=== PATIENT | female | born 1995 | race Caucasian/White ===

== ENCOUNTER 2023-11-17 09:34 | Emergency (ER) | payer OTHER, SELFPAY ==
[2023-11-17 09:38] VITALS: BP 131/69; PULSE 70; RESP 16; TEMP 36.2; O2SAT 98; BMI 27.3
--- NOTE | 2023-11-17 10:10 | ED_ITS ---
HPI - General Adult General Chief complaint: Nausea/Vomiting Stated complaint: Throwing up blood Time Seen by Provider: 11/17/23 09:40 History of Present Illness HPI narrative: Patient is a 28-year-old female who gave to her son 7 months ago and since then has had depression as well as vomiting especially in the morning. She reports that usually she vomits a couple of times and feels better, occasionally she gets severe vomiting and will vomit throughout the whole day. She noticed some blood-streaked vomitus today. She has not been on any aspirin or anti-inflammatory medicine. She does take Abilify and Celexa. She has been seen in the [facility] several times for dehydration and has not had any upper endoscopy or imaging. She has had no weight loss, fevers, chills. She reports epigastric discomfort. She has not had black stools by her report. Related Data Home Medications ?Medication ?Instructions ?Recorded ?Confirmed aripiprazole 5 mg tablet (Abilify) 5 mg PO DAILY 11/17/23 11/17/23 citalopram 10 mg tablet (Celexa) 10 mg PO DAILY 11/17/23 11/17/23 Previous Rx's ?Medication ?Instructions ?Recorded pantoprazole 40 mg tablet,delayed 40 mg PO DAILY #20 tabs 11/17/23 release (Protonix) Allergies Allergy/AdvReac Type Severity Reaction Status Date / Time docosanol [From Abreva] Allergy Mild Verified 11/17/23 09:48 venlafaxine [From Effexor] Allergy Mild Verified 11/17/23 09:48 Review of Systems Status of ROS: Reports: 6 or more systems reviewed and unremarkable except as noted in History and below PFSH PFS Social History Smoking Status: Never smoker Do you use any of these nicotine containing products: None Second hand tobacco smoke exposure: No How often do you have a drink containing alcohol: monthly or less How often do you have six or more drinks on one occasion: Never AUDIT-C Alcohol total score: 1 Non-prescribed substance use: marijuana (any form) Exam Narrative: Exam Narrative: Objective vital signs are within normal limits blood pressure 131/69 pulse is 70 and regular Patient's appears mildly anxious but does not appear in significant pain Alert orient x3 very pleasant Neck supple pulse regular abdomen mild epigastric tenderness to palpation no rebound or peritonitis No palpable masses in the abdomen Extremities are no edema Neurologic nonfocal grossly. Const: Vital Signs, click to edit/add: Vital Signs - 24 hr 11/17/23 09:38 11/17/23 11:16 Temperature 97.1 F L Pulse Rate [Pulse Oximeter] 70 80 Respiratory Rate 16 Blood Pressure [Le ft Upper Arm] 131/69 118/73 Pulse Oximetry 98 100 Oxygen Delivery Me thod Room Air Room Air Course Vital Signs Vital signs: Initial Vital Signs Temperature 97.1 F L 11/17/23 09:38 Temperature Source Temporal Artery Scan 11/17/23 09:38 Pulse Rate 70 11/17/23 09:38 Pulse Rhythm Regular 11/17/23 09:38 Respiratory Rate 16 11/17/23 09:38 Blood Pressure 131/69 11/17/23 09:38 Blood Pressure Mean 89 11/17/23 09:38 Blood Pressure Position Right Lateral 11/17/23 09:38 Pulse Oximetry 98 11/17/23 09:38 Oxygen Delivery Method Room Air 11/17/23 09:38 Vital Signs Temperature 97.1 F L 11/17/23 09:38 Pulse Rate 70 11/17/23 09:38 Respiratory Rate 16 11/17/23 09:38 Blood Pressure 131/69 11/17/23 09:38 Pulse Oximetry 98 11/17/23 09:38 Oxygen Delivery Method Room Air 11/17/23 09:38 Temperature 97.1 F L 11/17/23 09:38 Pulse Rate 80 11/17/23 11:16 Respiratory Rate 16 11/17/23 09:38 Blood Pressure 118/73 11/17/23 11:16 Pulse Oximetry 100 11/17/23 11:16 Oxygen Delivery Method Room Air 11/17/23 11:16 Medications Administered Medications: Discontinued Medications Generic Name Dose Route Start Last Admin Trade Name Freq PRN Reason Stop Dose Admin Sodium Chloride 1,000 mls @ 6,000 mls/hr 11/17/23 10:15 11/17/23 11:01 0.9 % Sodium Chloride 1000 Ml IV 11/17/23 10:24 Infused .Q10M RAYMOND Infusion Lorazepam 1 mg 11/17/23 10:08 11/17/23 10:34 Lorazepam 2 Mg/Ml Inj IVP 11/17/23 10:09 1 mg ONCE ONE Administration Ondansetron HCl 4 mg 11/17/23 10:08 11/17/23 10:36 Ondansetron 2 Mg/Ml Inj IVP 11/17/23 10:09 4 mg ONCE ONE Administration Pantoprazole Sodium 40 mg 11/17/23 10:10 11/17/23 10:40 Pantoprazole Sodium 40 Mg Inj IVP 11/17/23 10:11 40 mg ONCE ONE Administration Medical Decision Making MDM Narrative Medical decision making narrative: Third 20 year white female with significant depression as well as vomiting. Patient appears mildly dehydrated. She still feels nauseated. Will treat her with IV Ativan IV Zofran IV fluid. Will also give her IV Protonix. Will check her electrolytes labs, hemoglobin, will check a type and screen. Depending on her lab studies and her clinical improvement may set her up for EGD. She will need to continue on Protonix as an outpatient. This is if she is able to go home. She was comfortable assessment and plan. Addendum 11:15 a.m.: The patient feels better after Ativan and fluids and Zofran. I think she needs an EGD given she has had this repetitive vomiting. She also told the nurse that she might have some ideation, of harming her children, but she reports that was earlier and she got on medication she has had no further thoughts with any of those issues. Not suicidal either. I think at this point she needs an EGD will set up for tomorrow. She will do that with our staff here. I think at this point she has had repetitive vomiting she thinks she had some blood tinged vomit as well, but I think ruling on also be appropriate she appears hemodynamically stable and able go home now. I am going to have her go home on Protonix as well. She can continue her home meds. And follow the EGD instructions pre EGD. Lab Data Labs: Lab Results 11/17/23 11/17/23 Range/Units 10:25 10:27 WBC 15.53 H (4.50-11.00) K/uL RBC 5.07 (4.00-5.20) m/uL Hgb 14.9 (12.0-16.0) gm/dL Hct 42.7 (33.0-51.0) % MCV 84 (80-100) fL MCH 29 (26-34) pg MCHC 35 (32-36) gm/dL RDW Coeff of Paty 12.3 (11.5-15.5) % Plt Count 304 (140-440) K/uL Neut % (Auto) 94.0 H (42.0-72.0) % Lymph % (Auto) 4.1 L (20-44) % [place] % (Auto) 1.4 (0.0-11.0) % Eos % (Auto) 0.1 (0.0-7.0) % Baso % (Auto) 0.2 (0.0-3.0) % Neut # (Auto) 14.60 H (1.7-7.0) K/uL Lymph # (Auto) 0.60 L (0.90-2.90) K/uL [place] # (Auto) 0.20 (0.00-0.90) K/UL Eos # (Auto) 0.00 (0.00-0.50) K/uL Baso # (Auto) 0.00 (0.00-0.30) K/uL Abs Immat Gran (auto) 0.00 (0.00-0.30) K/uL Imm/Tot Granulo (auto) 0.2 % INR 1.03 (0.91-1.10) APTT 29 (23-33) Seconds Sodium 139 (135-149) mmol/L Potassium 3.2 L (3.6-5.1) mmol/L Chloride 106 (96-114) mmol/L Carbon Dioxide 18 L (20-32) mmol/L Anion Gap 15 (7-15) mEq/L BUN 9 (5-24) mg/dL Creatinine 0.7 (0.5-1.5) mg/dL Estimated Creat Clear 125.04 Estimated GFR 121 ml/min Glucose 134 H (60-115) mg/dL Calcium 9.6 (8.4-10.6) mg/dL Total Bilirubin 0.7 (0.1-1.5) mg/dL Direct Bilirubin 0.2 (0.0-0.5) mg/dL AST 22 (12-35) U/L ALT 18 (4-35) U/L Alkaline Phosphatase 86 (40-150) U/L C-Reactive Protein < 0.5 L (0.5-1.0) mg/dL Total Protein 7.6 (6.0-8.3) g/dL Albumin 4.8 (3.3-5.0) g/dL Amylase 63 (18-89) U/L HCG, Qual Negative (Negative) Discharge Plan Discharge Clinical Impression: Vomiting Patient Disposition: Home w/ Parent or Adult Condition: Improved Additional Instructions: Light diet nothing to eat after midnight. Would recommend you try Protonix daily, would start this after her procedure tomorrow. Light activity. Continue home meds. EGD is scheduled with [facility] on 11/17 with a 10:15am appointment time. Please arrive at 9:30am to complete paperwork. Enter through the [facility] ER and take a left to the [facility]. Please follow the instructions that were provided to you. If you have any questions, please call [phone]. Activity Level: Light activity Discharge Diet: Regular Prescriptions: New pantoprazole [Protonix] 40 mg tablet,delayed release (DR/EC) 40 mg PO DAILY Qty: 20 2RF No Action aripiprazole [Abilify] 5 mg tablet 5 mg PO DAILY citalopram [Celexa] 10 mg tablet 10 mg PO DAILY Stand Alone Forms: [employer] Info Instructions
[2023-11-17 10:31] LABS: Basophils Percent Auto 0.2 % (0.0-3.0); Eosinophils Percent Auto 0.1 % (0.0-7.0); Hematocrit 42.7 % (33.0-51.0); Hemoglobin* 14.9 gm/dL (12.0-16.0); Immature Granulocytes Pct Auto 0.2 %; Lymphocytes Percent Auto 4.1 % (20-44); Mean Corpuscular HGB Conc 35 gm/dL (32-36); Mean Corpuscular Hemoglobin 29 pg (26-34); Mean Corpuscular Volume 84 fL (80-100); Monocytes Percent Auto 1.4 % (0.0-11.0); Platelet Count* 304 K/uL (140-440); RDW Coefficient of Variation % 12.3 % (11.5-15.5); Red Blood Count 5.07 m/uL (4.00-5.20); White Blood Count* 15.53 K/uL (4.50-11.00)
[2023-11-17] MEDS: 0.9 % SODIUM CHLORIDE 1000 ml 1,000 ML 6000 ML IV (10:33)
[2023-11-17] MEDS: LORazepam 2 MG/ML inj 1 MG IVP (10:34)
[2023-11-17] MEDS: ONDANSETRON 2 MG/ML inj 4 MG IVP (10:36)
[2023-11-17 10:40] LABS: Slide Review Reflex No
[2023-11-17] MEDS: PANTOPRAZOLE SODIUM 40 MG INJ IVP (10:40)
[2023-11-17 10:53] LABS: Albumin* 4.8 g/dL (3.3-5.0); Chloride* 106 mmol/L (96-114)
[2023-11-17 10:54] LABS: Potassium* 3.2 mmol/L (3.6-5.1); Sodium* 139 mmol/L (135-149)
[2023-11-17 10:56] LABS: Alkaline Phosphatase* 86 U/L (40-150); Amylase* 63 U/L (18-89); Anion Gap 15 mEq/L (7-15); Aspartate Amino Transferase* 22 U/L (12-35); Bilirubin Direct* 0.2 mg/dL (0.0-0.5); Bilirubin Total* 0.7 mg/dL (0.1-1.5); Blood Urea Nitrogen* 9 mg/dL (5-24); Carbon Dioxide* 18 mmol/L (20-32); Creatinine* 0.7 mg/dL (0.5-1.5); Est. Creatinine Clearance* 125.04; Estimated Glomerular Filt Rate 121 ml/min; Glucose* 134 mg/dL (60-115); Total Protein* 7.6 g/dL (6.0-8.3)
[2023-11-17 10:57] LABS: Alanine Aminotransferase* 18 U/L (4-35); Calcium* 9.6 mg/dL (8.4-10.6)
--- NOTE | 2023-11-17 10:57 | ED.NURSE ---
RN asked patient safety questions regarding self-harm. Patient denied harm to self but affirmed she has previously had thoughts of harm toward her children. 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 Patient states that she is seen monthly for this. Denies any current harmful thoughts towards her children. This was communicated with Dr. Cervantes who is treating her today.
[2023-11-17 11:03] LABS: C Reactive Protein* < 0.5 mg/dL (0.5-1.0)
[2023-11-17 11:14] LABS: INR 1.03 (0.91-1.10); Partial Thromboplastin Time* 29 Seconds (23-33); Prothrombin Time 14.1 Seconds
[2023-11-17 11:16] VITALS: BP 118/73; PULSE 80; O2SAT 100
[2023-11-17 11:17] LABS: HCG Qualitative Serum* Negative (Negative)
== END 2023-11-17 11:19 | disposition home or self-care (01) ==
PROVIDERS: Emergency Provider Family Medicine; PCP Family Medicine
DX: R11.10 Vomiting, unspecified (principal)
CPT/HCPCS: 36415; 80048; 80076; 82150; 84703; 85025; 85610; 85730; 86140; 86850; 86900; 86901; 96374; 96375; 99284; 99285; J2060; J2405; J2470; J7030

== ENCOUNTER 2023-11-18 09:31 | Outpatient (CLI) | payer OTHER, SELFPAY ==
--- OUTSIDE RECORDS SUMMARY | 2023-11-18 09:36 | XMS_ITS ---
Author Organization [facility] Address [address] [place] [address] Care Team Providers Care Siebel Consultant Name Role Phone Unavailable Unavailable Unavailable Surgery Details Not on file Complications Check Surgery Details section. Procedure Estimated Blood Loss Check Surgery Details section. Procedure Findings Check Surgery Details section. Procedure Specimens Taken Check Surgery Details section.
--- OUTSIDE RECORDS SUMMARY | 2023-11-18 09:36 | XMS_ITS | Clinical Summary ---
Author Organization [facility] Address [address] [place] [address] Care Team Providers Care Division Operations Specialist Name Role Phone Unavailable Primary Care Provider Unavailabl e Source Comments Patient records contain information from all sites at [facility]. For routine questions regarding patient records, call [phone] during business hours, M-F 8:00 AM - 5:00 PM Central Time. Record requests for emergency care only can be directed to [phone] at any time.[facility] Allergies Active Allergy Reactions Criticality Noted Date Comments Docosanol Hives only, no other systemic symptoms 03/16/2023 Venlafaxine GI intolerance 03/16/2023 Medications Medication Sig Dispensed Refills Start Date End Date Status cyclobenzaprine (FLEXERIL) 5 mg tablet Take 5 mg by mouth at bedtime as needed. 03/15/2023 Active hydrOXYzine (VISTARIL) 25 mg capsule Take 25 mg by mouth at bedtime as needed. 03/15/2023 Active metoclopramide (REGLAN) 10 mg tablet Take by mouth. 10/18/2022 Active multivit no.[id number] acid (-U) 106.5-1 mg capsule Take 1 tablet by mouth daily. 06/25/2020 Active omeprazole (PriLOSEC) [address] capsule Take 20 mg by mouth daily. Active ondansetron ODT (ZOFRAN-ODT) 4 mg disintegrating tablet Dissolve 4 mg in the mouth every 8 (eight) hours as needed. 11/09/2022 Active valACYclovir (VALTREX) 500 mg tablet TAKE 4 TABLETS BY MOUTH TWICE DAILY FOR 3 DAYS USE NEEDED FOR COLD SORES 06/14/2022 Active Immunizations Name Administration Dates Next Due DTP / Hib 10/18/1996,04/11/1996,1995 ,1995 HepB, Unspecified 04/11/1996,1995,08/16/18 96 MMR 10/18/1996 OPV 04/11/1996,1995,1995 Social History Tobacco Use Types Packs/Day Years Used Date Smoking Tobacco: Never Smokeless Tobacco: Never Tobacco Cessation:Counseling Given: Not Answered Alcohol Use Standard Drinks/Week Comments Not Currently 0 (1 standard drink = 0.6 oz pur e alcohol) Nutrition Answer Date Recorded Nutrition: EVOO Fat Source Unknown 04/16 Nutrition: Servings of Fruits/Vegetables per Day Not on file 04/16/2020 Dental Answer Date Recorded Dental: Regular Dentist Unknown 04/17/19 21 Comments Yes Sex and Gender Information Value Date Recorded Sex Assigned at Not on file Gender Identity Not on file Sexual Orientation Not on file Last Filed Vital Signs Vital Sign Reading Time Taken Comments Blood Pressure 109/55 03/16/2023 8:56 AM GROCERY STOCK CLERK Pulse 91 03/16/2023 8:56 AM GROCERY STOCK CLERK Temperature - - Respiratory Rate - - Oxygen Saturation - - Inhaled Oxygen Concentration - - Weight 101 kg (223 lb 1.7 oz) 03/16/2023 8:56 AM GROCERY STOCK CLERK Height - - Body Mass Index - - Plan of Treatment Health Maintenance Due Date Last Done Comments Cervical Cancer Screening 1995 HIV Screening 1995 Hepatitis C Screening 1995 Depression Screening (Annual PHQ-2) 02/15/2023 COVID-19 Vaccine ( season) 2023 Influenza Vaccine (#1) 2023 , 12/03/2006, 12/03/2006, Additional history exists DTaP,Tdap,and Td Vaccines (10 - Td or Tdap) 02/05/2033 02/05/2023, 12/02/2020, 09/30/2016, Additional history exists RSV vaccine - (32-36 weeks) or 60+ years (1 - 1-dose 75+ series) 06/14/2070 02/17/2023 Hepatitis B Vaccines Completed 04/11/1996, 1995, 1995 HPV Vaccines Completed 12/25/2010, 11/15, 08/11/2007, Additional history exists Pneumococcal vaccine (0-64 years) Aged Out No longer eligible based on patient's age to complete this topic
--- OUTSIDE RECORDS SUMMARY | 2023-11-18 09:36 | XMS_ITS | Referral Summary ---
Author Organization [facility] Address [address] [place] [address] Care Team Providers Care Diversity Specialist Name Role Phone Unavailable Primary Care Provider Unavailabl e Source Comments Patient records contain information from all sites at [facility]. For routine questions regarding patient records, call [phone] during business hours, M-F 8:00 AM - 5:00 PM Central Time. Record requests for emergency care only can be directed to [phone] at any time.[facility] Allergies Active Allergy Reactions Criticality Noted Date [...] tablet Take by mouth. 10/18/2022 Active multivit no.[id number] acid (-U) 106.5-1 mg capsule Take 1 [...] Comments Blood Pressure 109/55 03/16/2023 8:56 AM SUPPORT REPRESENTATIVE Pulse 91 03/16/2023 8:56 AM SUPPORT REPRESENTATIVE Temperature - - Respiratory Rate - - Oxygen Saturation - - Inhaled Oxygen Concentration - - Weight 101 kg (223 lb 1.7 oz) 03/16/2023 8:56 AM SUPPORT REPRESENTATIVE Height - - Body Mass Index - - Plan of Treatment Not on file
--- OUTSIDE RECORDS SUMMARY | 2023-11-18 09:37 | XMS_ITS | Clinical Summary ---
Author Organization [employer] [facility] Address [place], [place] [address] Care Team Providers Care Clinical Operations Manager Name Role Phone Leopoldo Molina MD Primary Care Provider Jessa Sanchez MD Unavailable + [phone] Allergies Active Allergy Reactions Criticality Noted Date Comments Docosanol Edema,Hives 09/18/2008 Venlafaxine Vomiting,GI Upset 06/25/2020 Medications Medication Sig Dispensed Refills Start Date End Date Status vit 28/iron fum/folic (multivitamin folic acid 1 mg) Take 1 Tablet by mouth once daily. 90 Tablet 3 06/25/2020 Active valACYclovir (VALTREX) 500 mg tablet TAKE 4 TABLETS BY MOUTH TWICE DAILY FOR 3 DAYS USE NEEDED FOR COLD SORES 06/14/2022 Active omeprazole (PRILOSEC) 20 mg Delayed-Release capsule Take 20 mg by mouth once daily. Active acetaminophen (TYLENOL) 325 mg tabletIndications:S /P tubal ligation Take 1-2 Tablets (325-650 mg) by mouth every 4 hours if needed (mild pain). Max acetaminophen dose: 4000mg in 24 hrs. 04/20/2023 Active ibuprofen (Motrin IB) 200 mg tabletIndications:S /P tubal ligation Take 1-3 Tablets (200-600 mg) by mouth every 6 hours if needed (for uterine cramping). Take with food. 04/20/2023 Active promethazine (PHENERGAN) 25 mg tabletIndications:N ausea and vomiting, unspecified vomiting type Take 1 Tablet (25 mg) by mouth one time if needed for Nausea/Vomiting for up to 20 doses. Take at bedtime as needed for nausea. This medication will make you sleepy 20 Tablet 09/02/2023 Active ARIPiprazole (Abilify) 5 mg tabletIndications:G eneralized anxiety disorder,Adjustment disorder with mixed anxiety and depressed mood Take 1 Tablet (5 mg) by mouth once daily. 30 Tablet 3 10/27/2023 Active escitalopram oxalate (Lexapro) 10 mg tabletIndications:G eneralized anxiety disorder,Adjustment disorder with mixed anxiety and depressed mood Take 1 Tablet (10 mg) by mouth once daily. 30 Tablet 3 10/27/2023 Active ondansetron (ZOFRAN ODT) 4 mg disintegrating tabletIndications:V omiting, unspecified vomiting type, unspecified whether nausea present Place 1 Tablet (4 mg) on the tongue every 8 hours if needed for Nausea/Vomiting. 30 Tablet 2 10/27/2023 Active metoclopramide HCl (REGLAN) 10 mg tabletIndications:N ausea and vomiting, unspecified vomiting type Take 1 Tablet (10 mg) by mouth every 6 hours if needed for Nausea/Vomiting. 20 Tablet 10/27/2023 Active ondansetron (ZOFRAN ODT) 4 mg disintegrating tabletIndications:V omiting, unspecified vomiting type, unspecified whether nausea present Place 1 Tablet (4 mg) on the tongue every 8 hours if needed for Nausea/Vomiting. 12 Tablet 07/19/2023 10/27/19 24 Discontinu ed(Reorder (E-cancel not sent)) metoclopramide HCl (REGLAN) 10 mg tabletIndications:N ausea and vomiting, unspecified vomiting type Take 1 Tablet (10 mg) by mouth every 6 hours if needed for Nausea/Vomiting. 20 Tablet 09/02/2023 10/27/19 24 Discontinu ed(Reorder (E-cancel not sent)) Active Problems Problem Noted Date Diagnosed Date Pap smear of cervix with ASCUS, cannot exclude H GSIL 06/17/2023 Overview (07/02/2023): 06/01/2023 ASC-H/HPV Negative 06/2023: CIN1 on biopsy Plan Pap smear with HPV testing 05/2025 Mihaela Mendiola MD S/P tubal ligation 04/20/2023 Encounter for insertion of Mirena IUD 04/18/2023 Encounter for supervision of normal in third trimester 02/17/2023 [facility] Supervision of high-risk Overview (11/10/2022): MPP ULTRASOUND/TESTING PATIENT Support person name: Virtual Reality Specialist: No ULTRASOUND TYPE: L2 REASON FOR VISIT: hyperemesis with 25 lb weight loss in 1st trimester NEXT VISIT ALERTS: Final MOHSEN by LMP LMP Date: Patient's last menstrual period was 07/06/2022 (exact date). MOHSEN: 04/12/23 Early US: Date: 08/31/22 GA: 7w6d MOHSEN: 04/13/23 PrePregnancy Weight: 180 Height: 69in BMI: 25 PLANS & FUTURE APPOINTMENTS: ULTRASOUND/GROWTH PLAN: - Through: - Growth: Next TESTING PLAN: - Testing: Through DELIVERY PLAN: - Scheduled delivery: - Preferred delivery location: PRIMARY DIAGNOSIS: 27 y.o. Estimated Date of Delivery: 04/12/23 MATERNAL Hyperemesis with significant weight loss in Prepreg 180 lb Lowest 155 lb Current 169 lb Term (2016, 2021) PREVIOUS ULTRASOUNDS: (PCP) 08/31/22 7w6d ECHO: REFERRING PHYSICIAN/PHONE/LAST UPDATE: Jessa Sanchez MD [facility] [phone] Primary MD approves scheduling of recommended ultrasounds/testing: No SPECIALISTS/CONSULTS: Include: Specialty MD Clinic Name Phone# QN NV and ADDED TO PATIENT CARE TEAM Yes GENETICS: Declines/Not Done CARE COORDINATION: PERTINENT LABS: Labs reviewed? Yes Normal? Yes Blood type: A Rh Positive Antibody screen: Negative Non-[facility] labs need to be entered in EPIC? 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 Resolved Problems Problem Noted Date Diagnosed Date Resolved Date 10/05/2022 04/05/2023 Cannabis use, unspecified wi th anxiety disorder 08/25/2022 10/05/2022 Encounter for supervision of normal in third trimester 01/06/2021 09/04/2022 Marijuana use 08/07/2020 09/04/2022 Severe recurrent major depre ssion without psychotic features 06/27/2020 12/24/2020 Encounter for supervision of normal first in third trimester 12/12/2016 09/04/2022 Normal labor 12/12/2016 09/04/2022 GBS (group B Streptococcus c arrier), +RV culture, currently 12/12/2016 02/12/2021 Adjustment disorder with mix ed anxiety and depressed mood 06/19/2012 04/05/2023 Unspecified constipation Encounters Date Type Department Care Team Description 10/27/2023 10:40 AM CDT Office Visit [facility] [address] [place] [address] Leopoldo Molina MD Pain (back pain); Diarrhea; Vomiting; Care ( mood swings) 10/27/2023 Travel 09/04/2023 2:10 PM CDT Orders Only [facility] [address] [place] [address] Lab, [facility] Lab 09/04/2023 Travel 09/02/2023 7:08 PM CDT - 09/02/2023 9:45 PM CDT Emergency [facility] [address] [place] [address] Yulia De NP Nausea and vomiting, unspecified vomiting type (Primary Dx); Dehydration; Diarrhea, unspecified type Discharge Disposition: Home Self Care 09/02/2023 Travel from Last 3 Months Immunizations Name Administration Dates Next Due DTaP 06/22/2000 DTaP-HIB (TriHIBIT) 10/19/1996, 7,1995,03/1995 Hepatitis A (Adult) 09/03/2014 Hepatitis A (Peds),Unspecified 01/04/2014 Hepatitis B (Peds) 04/11/1996,1995, 996 Human Papilloma Virus Vaccine 12/25/2010 ,11/29/2008,08/11/2007,11/1512/11/2007 Inactivated Polio Vaccine 06/22/2000 Influenza, IIV3 (Age >=3 years) 12/03/2006,04/09 Influenza, IIV4 12/07/2022 MENINGOCOCCAL VACCINE 2 VIAL 2MO-55YO (MENVEO) 01/22/2014 MMR 02/27/2021,06/22/2000,10/19/1996 Meningococcal Vaccine (Menactra) 12/03/2006 Oral Polio Vaccine 10/19/1996, 7,1995,0703/1995 RSV, Bivalent Vaccine Recons tituted (Abrysvo 120MCG/0.5mL) 02/17/2023 Tdap 02/05/2023,,09/30/2016,11/15 Typhoid (injectable) 01/04/2014 Varicella Vaccine 08/11/2007,03/25/2001 Family History Medical History Relation Name Comments Psychiatric illness Brother ADHD Good Health Father Thyroid Disease Mother Asthma Sister Psychiatric illness Sister ADHD Relation Name Status Comments Brother Father Alive Mother Alive Sister Social History Tobacco Use Types Packs/Day Years Used Date Smoking Tobacco: Never Passive Smoke Exposure: Current Smokeless Tobacco: Never Tobacco Cessation:Counseling Given: Not Answered Comments:exposed to e cig smoke by Alcohol Use Standard Drinks/Week Comments No 0 (1 standard drink = 0.6 oz pur e alcohol) PHQ-2 Answer Date Recorded PHQ-2 TOTAL SCORE 3 10/27/2023 Social Connections Answer Date Recorded Frequency of Communication with Friends and Fami ly 0 04/09/2023 Financial Resource Strain Answer Date R ecorded Difficulty of Paying Living Expenses 3 04/09/2023 Difficulty of Paying Living Expenses Not on file 04/09/2023 Food Insecurity Answer Date Recorded Worried About Running Out of Food in the Last Ye ar 1 04/09/2023 Transportation Needs Answer Date Record ed Lack of Transportation (Medical) 1 04/09/2023 Housing Stability Answer Date Recorded Unable to Pay for Housing in the Last Year 1 04/09/2023 Sex and Gender Information Value Date Recorded Sex Assigned at Not on file Gender Identity Not on file Sexual Orientation Not on file Obstetrics History Para Term AB IAB SAB Ectopic Multiple Livin g Live Births 3 3 3 0 0 0 0 0 0 3 3 Date Outcome GA Total Labor Labor/2nd/3rd Weight Sex Type Anes PTL Mary A1 A5 Name Clin 2016 Term 40w 3d 12h 00m/2h 00m/1h 45m 4.03 kg (8 lb 14 oz) M Vag Epidur al N Livin g 8 9 LISSET ,JENNA Chen Delivery Location:[facility] 2021 Term 39w 2d 0h 14m 0h 14m 3.63 kg (8 lb) M Vag-S pont Epidur al Livin g 9 9 ANDREW FLOYD,JENNA Chen Drevl ow, Juanpablo Wempe n, DO Complications:None Delivery Location:[facility] ( [facility]) 2023 Term 40w 6d 6h 24m 5h 52m/0h 28m/0h 04m 4.65 kg (10 lb 4 oz) M Vag-S pont Epidur al Livin g 8 10 Florentin floyd Drevl ow, Juanpablo Wempe n, DO Complications:Prolonged late nt phase Delivery Location:Hospital ( [facility]) Last Filed Vital Signs Vital Sign Reading Time Taken Comments Blood Pressure 112/76 10/27/2023 10:48 AM CDT Pulse 107 10/27/2023 10:48 AM CDT Temperature 36.6 ??C (97.9 ??F) 09/02/2023 5:54 PM CD T Respiratory Rate 20 09/02/2023 5:54 PM CDT Oxygen Saturation 98% 10/27/2023 10:48 AM CDT Inhaled Oxygen Concentration - - Weight 87.8 kg (193 lb 9.6 oz) 10/27/2023 10:48 AM CDT Height 175.3 cm (5' 9) 09/02/2023 5:54 PM CDT Body Mass Index 28.59 09/02/2023 5:54 PM CDT Plan of Treatment Health Maintenance Due Date Last Done Comments COVID-19 vaccine series ( season) 2023 Influenza for age 9-49 10/17/2023 3, 12/03/2006, 04/09/2006 BMI (ht and wt on same day) for age 18+ 06/28/2024 06/29/2023, 06/01/2023, 03/10/2022, Additional history exists Pap test for age 21-65 06/28/2024 4 (Verified in Care Everywhere or Patient Record), 06/01/2023, 06/01/2023, Additional history exists Depression screening for age 12+ 10/26/2024 10/27/2023, 07/05/2023, 07/02/2023, Additional history exists Tetanus booster 02/05/2033 02/05/2023, 11/15, 09/30/2016, Additional history exists HIV for age 15-65 Completed 08/25/2022, , 08/01/2020, Additional history exists Hepatitis C screening for age 18-79 Completed 08/25/2022, 08/01/2020, 04/21/2016 Tdap Completed 02/05/2023, 11/15, 09/30/2016, Additional history exists Pneumococcal series for age 6-64 Aged Out No longer eligible based on patient's age to complete this topic Procedures Procedure Name Priority Date/Time Associated Diagnosis Comments CLOSTRIDIOIDES DIFFICILE TOXIN PCR STAT 09/04/2023 9:51 AM CDT Nausea and vomiting, unspecified vomiting type Dehydration Diarrhea, unspecified type STOOL PATHOGEN MULTIPLEX PCR PANEL STAT 09/04/2023 9:51 AM CDT Nausea and vomiting, unspecified vomiting type Dehydration Diarrhea, unspecified type URINE CULTURE STAT 09/02/2023 8:24 PM CDT URINALYSIS MICROSCOPIC STAT 8:24 PM CDT UA W/ SEDIMENT EXAM REFLEXED PER CRITERIA STAT 09/02/2023 8:24 PM CDT CBC WITH AUTO DIFFERENTIAL STAT 09/02/2023 7:11 PM CDT PROTIME-INR STAT 09/02/2023 7:11 PM CDT CBC WITH AUTO DIFFERENTIAL STAT 09/02/2023 7:11 PM CDT LIPASE STAT 09/02/2023 7:10 PM CDT HEPATIC FUNCTION PANEL STAT 7:10 PM CDT BASIC METABOLIC PANEL STAT 09/02/2023 7:10 PM CDT HPV HIGH RISK Routine 06/01/2023 10:30 AM CDT Pap smear for cervical cancer screening LC HIV-1/O/2, 4TH GENERATION Routine 08/25/2022 11:11 AM CDT , unspecified gestational age LC HCV ANTIBODY RFX TO QUANT PCR Routine 08/25/2022 11:11 AM CDT , unspecified gestational age from Last 3 Months or Most Recently Relevant to Health Maintenance Results * STOOL PATHOGEN MULTIPLEX PCR PANEL (09/04/2023 9:51 AM CDT) Campylobacter NOT Detected NOT Detected 09/05/2023 11:15 PM CDT [facility] Salmonella NOT Detected NOT Detected 09/05/2023 11:15 PM CDT [facility] Shigella NOT Detected NOT Detected 09/05/2023 11:15 PM CDT [facility] Vibrio NOT Detected NOT Detected 09/05/2023 11:15 PM CDT [facility] Yersinia Enterocolitica NOT Detected NOT Detected 09/05/2023 11:15 PM CDT [facility] Shiga Toxin 1 NOT Detected NOT Detected 09/05/2023 11:15 PM CDT [facility] Shiga Toxin 2 NOT Detected NOT Detected 09/05/2023 11:15 PM CDT [facility] Norovirus NOT Detected NOT Detected 09/05/2023 11:15 PM CDT [facility] Rotavirus NOT Detected NOT Detected 09/05/2023 11:15 PM CDT [facility] Stool STOOL SPECIMEN / Unknown Non-Blood / Unknown 09/04/2023 9:51 AM CDT 09/04/2023 1:00 PM CDT Narrative [facility] - 09/05/2023 11:15 PM CDT This test is a Culture Independent Diagnostic Test (CIDT) therefore isolates are not available for susceptibility testing. ??Antibiotic treatment is often contraindicated and may be detrimental in cases of enteric infections, thus routine susceptibility testing is not recommended. Yulia De NP MICROBIOLOG Y Performing Organization Address [facility] Co de Phone Number [facility] [address] [place] [address], * CLOSTRIDIOIDES DIFFICILE TOXIN PCR (09/04/2023 9:51 AM CDT) CLOSTRIDIUM DIFFICILE PCR Negative 09/05/2023 3:33 PM CDT [facility] PRESUMPTIVE NAP1 STRAIN Negative 09/05/2023 3:33 PM CDT [facility] Stool STOOL SPECIMEN / Unknown Non-Blood / Unknown 09/04/2023 9:51 AM CDT 09/04/2023 1:00 PM CDT Narrative [facility] - 09/05/2023 3:33 PM CDT The NAP1 (027 or BI) strain is a hypervirulent strain. Detection may be useful for epidemiological purposes. Yulia De NP MICROBIOLOG Y Performing Organization Address City/[facility]/ZIP Co de Phone Number [facility] [address] [place] [address], * (ABNORMAL) URINALYSIS MICROSCOPIC (09/02/2023 8:24 PM CDT) RBC 0-2 0-2, None Seen /HPF 09/02/2023 8:41 PM CDT [facility] WBC 3-5 0-2, 3-5, None Seen /HPF 09/02/2023 8:41 PM CDT [facility] BACTERIA Many(A) None Seen, Rare, Few Bacteria/ HPF 09/02/2023 8:41 PM CDT [facility] EPITHELIAL CELLS Moderate(A) None Seen, Few Epi/HPF 09/02/2023 8:41 PM CDT [facility] Mucus Present 09/02/2023 8:41 PM CDT [facility] Urine URINE SPECIMEN / Unknown Non-Blood / Unknown 09/02/2023 8:24 PM CDT 09/02/2023 8:29 PM CDT Yulia De [employer] URINE Performing Organization Address [facility]/ZIP Co de Phone Number [facility] [address] [place] [phone] * URINE CULTURE (09/02/2023 8:24 PM CDT) CULTURE <10,000 CFU/mL multiple organisms 09/03/2023 8:15 PM CDT [facility] Urine URINE SPECIMEN / Unknown Non-Blood / Unknown 09/02/2023 8:24 PM CDT 09/02/2023 8:29 PM CDT Yulia De [employer] MICROBIOLOG Y [facility] [address] [place] [address], * (ABNORMAL) Urinalysis W Reflex Microscopic if Positive (09/02/2023 8:24 PM CDT) COLOR Yellow Yellow Color 09/02/2023 8:39 PM CDT [facility] CLARITY Clear Clear Clarity 09/02/2023 8:39 PM CDT [facility] SPECIFIC GRAVITY,URINE >=1.030(A) 1.010, 1.015, 1.020, 1.025 09/02/2023 8:39 PM T [facility] PH,URINE 6.0 6.0, 7.0, 8.0, 5.5, 6.5, 7.5, 8.5 09/02/2023 8:39 PM T [facility] UROBILINOGEN,QU ALITATIVE Normal Normal EU/dl 09/02/2023 8:39 PM [facility] PROTEIN, URINE 100(A) Negative mg/dL 09/02/2023 8:39 PM T [facility] GLUCOSE, URINE Negative Negative mg/dL 09/02/2023 8:39 PM [facility] KETONES,URINE >=80(A) Negative mg/dL 09/02/2023 8:39 PM T [facility] BILIRUBIN,URINE Abnormal(A) Negative 09/02/19 8:39 PM [facility] Comment:A variety of metabol ites and/or medications may result in a positive bilirubin result. Clinical correlation is recommended. OCCULT BLOOD,URINE Moderate(A) Negative 09/02/2023 8:39 PM [facility] NITRITE Negative Negative 09/02/2023 8:39 PM [facility] LEUKOCYTE ESTERASE Negative Negative 09/02/2023 8:39 PM [facility] Urine URINE SPECIMEN / Unknown Non-Blood / Unknown 09/02/2023 8:24 PM CDT 09/02/2023 8:29 PM CDT Yulia De NP URINE [facility] [address] [place] [address] [phone] * (ABNORMAL) CBC WITH AUTO DIFFERENTIAL (09/02/2023 7:11 PM CDT) WHITE BLOOD COUNT 10.9 4.5 - 11.0 thou/cu mm 09/02/2023 7:17 PM T [facility] RED BLOOD COUNT 5.69(H) 4.00 - 5.20 mil/cu mm 09/02/2023 7:17 PM [facility] HEMOGLOBIN 16.9(H) 12.0 - 16.0 g/dL 09/02/2023 7:17 PM [facility] HEMATOCRIT 47.2 33.0 - 51.0 % 09/02/2023 7:17 PM [facility] MCV 83 80 - 100 fL 09/02/2023 7:17 PM [facility] MCH 29.7 26.0 - 34.0 pg 09/02/2023 7:17 PM [facility] MCHC 35.8 32.0 - 36.0 g/dL 09/02/2023 7:17 PM [facility] RDW 13.6 11.5 - 15.5 % 09/02/2023 7:17 PM [facility] PLATELET COUNT 292 140 - 440 thou/cu mm 09/02/2023 7:17 PM [facility] MPV 10.3 6.5 - 11.0 fL 09/02/2023 7:17 PM [facility] % NEUT 70.2 % 09/02/2023 7:17 PM [facility] % LYMPH 15.3 % 09/02/2023 7:17 PM [facility] % MONO 12.5 % 09/02/2023 7:17 PM [facility] % EOS 1.4 % 09/02/2023 7:17 PM [facility] % BASO 0.6 % 09/02/2023 7:17 PM [facility] ABSOLUTE NEUTROPHILS 7.6(H) 1.7 - 7.0 thou/cu mm 09/02/2023 7:17 PM [facility] ABSOLUTE LYMPHOCYTES 1.7 0.9 - 2.9 thou/cu mm 09/02/2023 7:17 PM [facility] ABSOLUTE MONOCYTES 1.4(H) <0.9 thou/cu mm 09/02/2023 7:17 PM [facility] ABSOLUTE EOSINOPHILS 0.2 <0.5 thou/cu mm 09/02/2023 7:17 PM CDT [facility] ABSOLUTE BASOPHILS 0.1 <0.3 thou/cu mm 09/02/2023 7:17 PM CDT [facility] Blood BLOOD SPECIMEN / Unknown Venipuncture / Unknown 09/02/2023 7:11 PM CDT 09/02/2023 7:13 PM CDT Yulia De NP HEMATOLOGY [facility] [address] [place] [address] * (ABNORMAL) Protime - INR (09/02/2023 7:11 PM CDT) INR 1.4(H) <1.3 09/02/2023 7:20 PM CDT [facility] PROTIME 15.1(H) 10.3 - 12.3 sec 09/02/2023 7:20 PM CDT [facility] Blood BLOOD SPECIMEN / Unknown Venipuncture / Unknown 09/02/2023 7:11 PM CDT 09/02/2023 7:13 PM CDT Narrative [facility] - 09/02/2023 7:20 PM CDT ?Therapeutic Range 2.0-3.0 for most anticoagulated patients 2.5-3.5 or 4.0 for high risk patients The INR is only used for patients on stable oral anticoagulant therapy. It makes no significant contribution to the diagnosis or treatment of patients whose Protime is prolonged for other reasons. INR results are increased when heparin levels exceed 1.0 U/mL, which corresponds to an aPTT >125 seconds if the patient is on UFH. Yulia De NP HEMATOLOGY [facility] [address] [place] [address] * Lipase (09/02/2023 7:10 PM CDT) LIPASE 28.7 13.0 - 60.0 IU/L 09/02/2023 7:35 PM CDT [facility] Blood BLOOD SPECIMEN / Unknown Venipuncture / Unknown 09/02/2023 7:10 PM CDT 09/02/2023 7:13 PM CDT Yulia De [employer] CHEMISTRY Performing Organization Address [facility] Co de Phone Number [facility] [address] [place] [address] * (ABNORMAL) Hepatic Function Panel (09/02/2023 7:10 PM CDT) ALBUMIN 4.9 4.0 - 4.9 g/dL 09/02/2023 7:35 PM T [facility] PROTEIN,TOTAL 8.5(H) 6.0 - 8.0 g/dL 09/02/2023 7:35 PM [facility] BILIRUBIN,TOTAL 0.6 0.0 - 1.2 mg/dL 09/02/2023 7:35 PM T [facility] BILIRUBIN,DIRECT <0.2 0.0 - 0.3 mg/dL 09/02/2023 7:35 PM [facility] BILIRUBIN,INDIRE CT 09/02/2023 7:35 PM [facility] Comment:Unable to calculate, Direct Bili <0.2 ALK PHOSPHATASE 96 35 - 104 IU/L 09/02/2023 7:35 PM T [facility] ALT (SGPT) 16 10 - 35 IU/L 09/02/2023 7:35 PM T [facility] AST (SGOT) 22 10 - 35 IU/L 09/02/2023 7:35 PM T [facility] Blood BLOOD SPECIMEN / Unknown Venipuncture / Unknown 09/02/2023 7:10 PM CDT 09/02/2023 7:13 PM CDT Yulia De NP CHEMISTRY [facility] [address] [place] [address] * (ABNORMAL) Basic Metabolic Panel (09/02/2023 7:10 PM CDT) SODIUM 137 136 - 145 mmol/L 09/02/2023 7:43 PM T [facility] POTASSIUM 3.9 3.5 - 5.1 mmol/L 09/02/2023 7:43 PM [facility] CHLORIDE 98 98 - 107 mmol/L 09/02/2023 7:43 PM [facility] CO2,TOTAL 19(L) 22 - 29 mmol/L 09/02/2023 7:43 PM [facility] ANION GAP 20(H) 5 - 18 09/02/2023 7:43 PM [facility] GLUCOSE 95 70 - 99 mg/dL 09/02/2023 7:43 PM [facility] CALCIUM 9.9 8.6 - 10.0 mg/dL 09/02/2023 7:43 PM [facility] BUN 10 6 - 20 mg/dL 09/02/2023 7:43 PM [facility] CREATININE 0.94(H) 0.50 - 0.90 mg/dL 09/02/2023 7:43 PM [facility] BUN/CREAT RATIO 11 10 - 20 7:43 PM [facility] eGFR 85(L) >90 mL/min/1.7 3m2 09/02/2023 7:43 PM [facility] Comment:As of 2021, eG FR is calculated by the CKD-EPI creatinine equation without race adjustment. ??eGFR can be influenced by muscle mass, exercise, and diet. ??The reported eGFR is an estimation only and is only applicable if the renal function is stable. Blood BLOOD SPECIMEN / Unknown Venipuncture / Unknown 09/02/2023 7:10 PM CDT 09/02/2023 7:13 PM CDT Yulia De [employer] CHEMISTRY [facility] [address] [place] [address] * HPV HIGH RISK (06/01/2023 10:30 AM CDT) TYPE 16 Negative Negative 06/04/2023 5:59 AM CDT [facility] TYPE 18 Negative Negative 06/04/2023 5:59 AM CDT [facility] OTHER HIGH RISK TYPES Negative Negative 06/04/2023 5:59 AM CDT [facility] Other (Cervical) Non-Blood / Unknown 06/01/2023 10:30 AM CDT 06/02/2023 2:08 PM CDT Narrative [facility] - 06/04/2023 5:59 AM CDT HPV types 16, 18, 31, 33, 35, 39, 45, 51, 52, 56, 58, 59, 66 and 68 DNA were undetectable or below the pre-set threshold. Methodology: Edgar Tong 4800 HPV Test Jessa Sanchez MD MICROBIOLOG Y [facility] [address] [place] [id number], * LC HCV ANTIBODY RFX TO QUANT PCR (08/25/2022 11:11 AM CDT) HCV Ab Non Reactive Non Reactive 08/27/2022 12:08 PM CDT [facility] Blood BLOOD SPECIMEN / Unknown Venipuncture / Unknown 08/25/2022 11:11 AM CDT 08/25/2022 11:11 AM CDT Narrative [facility] - 08/27/2022 12:08 PM CDT Performed at: ??[address] ??[id number] Design Consultant: Saúl Ferguson MD, Phone: ??[phone] Jessa Sanchez MD LABORATORY [facility] [address] [place] [address], * LC HIV-1/O/2, 4TH GENERATION (08/25/2022 11:11 AM CDT) HIV Scr 4th Gen Non Reactive Non Reactive 08/27/2022 9:06 PM CDT [facility] Comment: HIV Negative HIV-1/HIV-2 antibodies and HIV-1 p24 antigen were NOT detected. There is no laboratory evidence of HIV infection. Blood BLOOD SPECIMEN / Unknown Venipuncture / Unknown 08/25/2022 11:11 AM CDT 08/25/2022 11:11 AM CDT Narrative [facility] - 08/27/2022 9:06 PM CDT Performed at: ??[address] ??[id number] Design Consultant: Saúl Ferguson MD, Phone: ??[phone] Jessa Sanchez MD LABORATORY Performing Organization Address City/[facility] Co de Phone Number [facility] [address] [place] [address] from Last 3 Months or Most Recently Relevant to Health Maintenance Advance Directives * Full Code (Latest Code Status on File) Date Activated Date Inactivated Comments 04/17/2023 7:20 PM 04/20/2023 5:11 PM Question Answer Comments Code Status Discussion: Reviewed Preferences * Full Code Date Activated Date Inactivated Comments 02/26/2021 7:41 PM 02/27/2021 10:06 PM Question Answer Comments Code Status Discussion: Reviewed Preferences * Full Code Date Activated Date Inactivated Comments 12/12/2016 4:49 PM 12/14/2016 7:27 PM * Full Code Date Activated Date Inactivated Comments 12/12/2016 2:05 AM 12/12/2016 4:49 PM * Full Code Date Activated Date Inactivated Comments 12/07/2016 7:29 PM 12/07/2016 10:47 PM Care Teams Clinical Operations Manager Relationship Specialty Start Date End Date Leopoldo Molina MD [address] [facility] [place] [id number] PCP - General Family Practice 12/02/16 Jessa Sanchez MD [address] [facility] [address] [place] [id number] Referring Provider Family Practice 10/05/22
--- NOTE | 2023-11-18 10:45 | W.ANESCHARGE ---
Anesthesia Charges Start Date/Time Anesthesia Start Date: 11/18/23 Anesthesia Start Time: 10:25 Stop Date/Time Anesthesia Stop Date: 11/18/23 Anesthesia Stop Time: 10:42
--- NOTE | 2023-11-18 12:38 | W.ANESCHARGE ---
Anesthesia Charges Start Date/Time Anesthesia Start Date: 11/18/23 Anesthesia Start Time: 10:25 Stop Date/Time Anesthesia Stop Date: 11/18/23 Anesthesia Stop Time: 10:42
== END 2023-11-18 09:32 | disposition home or self-care (01) ==
LOC: OP CLINIC 09:33
PROVIDERS: PCP Family Medicine; Visit Provider Surgery
DX: R11.2 Nausea with vomiting, unspecified (principal); K92.2 Gastrointestinal hemorrhage, unspecified
CPT/HCPCS: 00731; 43239; 88305; J2704